=== PATIENT | female | born 1990 | race African-American/Black ===

== ENCOUNTER 2017-02-01 13:00 | Inpatient (IN) | payer OTHER, MEDICAID ==
[~2017-02-01] VITALS: Ht 162.6 cm; Wt 72.6 kg
[2017-02-01] MEDS ORDERED: SODIUM CHLORIDE 0.9% 1,000 ML IV ONE (14:15)
[2017-02-01] MEDS ORDERED: ONDANSETRON HCL 4MG/2ML VIAL IV ONE (14:30)
[2017-02-01 14:41] LABS: BASOPHILS % 0.7 % (0.0-2.0); EOSINOPHILS % 0.2 % (0.0-5.0); HEMATOCRIT. 42.3 % (36.0-48.0); HEMOGLOBIN. 14.9 g/dL (12.0-16.0); LYMPHOCYTES % 21.5 % (20.0-50.0); MEAN CORPUSCULAR HEMOGLOBIN 30.9 pg (28.0-32.0); MEAN CORPUSCULAR VOLUME 87.9 fL (81.0-99.0); MEAN PLATELET VOLUME 8.9 fl (7.4-10.4); MONOCYTES % 6.2 % (2.0-8.0); NEUTROPHILS % 71.4 % (40.0-76.0); PLATELET 278 x1000/uL (130-400); RED BLOOD CELL COUNT 4.81 mill/uL (4.2-5.4); RED CELL DISTRIBUTION WIDTH 12.1 % (11.6-14.6)
[2017-02-01 14:44] LABS: PARTIAL THROMBOPLASTIN TIME 28.2 sec (23.4-31.0); PROTHROMBIN TIME 10.8 sec (9.4-11.6)
[2017-02-01 14:53] LABS: CARBON DIOXIDE 23 mEq/L (21-32); CHLORIDE 105 mEq/L (98-107); TROPONIN I < 0.02 ng/mL (0.00-0.04)
[2017-02-01 14:59] LABS: CREATINE KINASE MB FRACTION < 0.5 ng/mL (0.5-3.6)
[2017-02-01 15:10] LABS: *AMPHETAMINES SCREEN URINE NEGATIVE (NEGATIVE); *BARBITURATES SCREEN URINE NEGATIVE (NEGATIVE); *BENZODIAZEPINES SCREEN URINE NEGATIVE (NEGATIVE); *COCAINE SCREEN URINE NEGATIVE (NEGATIVE); CANNABINOID URINE SCREEN NEGATIVE (NEGATIVE); METHADONE URINE SCREEN NEGATIVE (NEGATIVE); OPIATES URINE SCREEN NEGATIVE (NEGATIVE); PHENCYCLIDINE URINE SCREEN NEGATIVE (NEGATIVE)
[2017-02-01 16:04] LABS: B-HCG QUANTITATIVE 54706 mIU/mL (<3)
[2017-02-01 20:00] VITALS: BP 113/71
[2017-02-01] MEDS: SODIUM CHLORIDE 0.9% 1,000 ML IV SCH (20:23)
[2017-02-01 23:30] VITALS: BP_SYST 107; BP_SYST 116; BP_SYST 118; BP_DIAS 56; BP_DIAS 72; BP_DIAS 73
[2017-02-02] MEDS ORDERED: ACETAMINOPHEN 500MG TABLET PO PRN (00:15)
[2017-02-02 01:27] LABS: CLARITY URINE CLEAR (CLEAR); COLOR URINE YELLOW (YELLOW); GLUCOSE URINE NEGATIVE (NEGATIVE); KETONES URINE NEGATIVE (NEGATIVE); LEUKOCYTE ESTERASE URINE 1+ (NEGATIVE); NITRITE URINE NEGATIVE (NEGATIVE); OCCULT BLOOD URINE NEGATIVE (NEGATIVE); PROTEIN URINE NEGATIVE (NEGATIVE); SPECIFIC GRAVITY URINE 1.022 (1.005-1.030); UROBILINOGEN URINE 0.2 E.U./dL (0.2-1.0)
[2017-02-02 04:04] VITALS: BP 96/66
[2017-02-02] MEDS: ONDANSETRON HCL 4MG/2ML VIAL IV PRN (06:13)
[2017-02-02 06:48] LABS: BASOPHILS % 0.4 % (0.0-2.0); EOSINOPHILS % 0.8 % (0.0-5.0); HEMATOCRIT. 36.6 % (36.0-48.0); HEMOGLOBIN. 12.6 g/dL (12.0-16.0); MEAN CORPUSCULAR HEMOGLOBIN 30.6 pg (28.0-32.0); MEAN CORPUSCULAR VOLUME 88.8 fL (81.0-99.0); MEAN PLATELET VOLUME 8.8 fl (7.4-10.4); MONOCYTES % 8.8 % (2.0-8.0); PLATELET 249 x1000/uL (130-400); RED BLOOD CELL COUNT 4.12 mill/uL (4.2-5.4); RED CELL DISTRIBUTION WIDTH 11.8 % (11.6-14.6)
[2017-02-02 07:58] LABS: CARBON DIOXIDE 22 mEq/L (21-32); CHLORIDE 106 mEq/L (98-107)
[2017-02-02 08:00] VITALS: BP_SYST 102; BP_SYST 103; BP_SYST 105; BP_DIAS 54; BP_DIAS 55
[2017-02-02 08:05] LABS: TROPONIN I < 0.02 ng/mL (0.00-0.04)
[2017-02-02] MEDS: SODIUM CHLORIDE 0.9% 1,000 ML IV SCH ×2 (08:34→23:42)
[2017-02-02 12:00] VITALS: BP_SYST 110; BP_SYST 113; BP_DIAS 60; BP_DIAS 61; BP_DIAS 68
[2017-02-02 16:00] VITALS: BP_SYST 110; BP_SYST 112; BP_DIAS 61; BP_DIAS 62; BP_DIAS 65
[2017-02-02 20:00] VITALS: BP 116/70
[2017-02-02] MEDS ORDERED: AZITHROMYCIN 500 MG TABLET PO NR (20:30)
[2017-02-02] MEDS: CEFTRIAXONE 1 G PREMIX 50 ML IV SCH (23:37)
[2017-02-03] VITALS: BP 101/58
[2017-02-03] MEDS: ONDANSETRON HCL 4MG/2ML VIAL IV PRN ×2 (01:39→17:50)
[2017-02-03 06:07] LABS: CARBON DIOXIDE 19 mEq/L (21-32); CHLORIDE 106 mEq/L (98-107)
[2017-02-03 08:00] VITALS: BP 104/53
[2017-02-03 08:01] LABS: BASOPHILS % 0.4 % (0.0-2.0); EOSINOPHILS % 0.4 % (0.0-5.0); HEMATOCRIT. 37.5 % (36.0-48.0); HEMOGLOBIN. 12.8 g/dL (12.0-16.0); LYMPHOCYTES % 16.4 % (20.0-50.0); MEAN CORPUSCULAR HEMOGLOBIN 30.8 pg (28.0-32.0); MEAN CORPUSCULAR VOLUME 90.1 fL (81.0-99.0); MEAN PLATELET VOLUME 9.1 fl (7.4-10.4); MONOCYTES % 5.7 % (2.0-8.0); NEUTROPHILS % 77.1 % (40.0-76.0); PLATELET 254 x1000/uL (130-400); RED BLOOD CELL COUNT 4.17 mill/uL (4.2-5.4); RED CELL DISTRIBUTION WIDTH 12.2 % (11.6-14.6)
[2017-02-03 08:35] LABS: HEPATITIS B SURFACE ANTIGEN NEGATIVE; RUBELLA IGG 81.7 IU/mL (4.99-10)
[2017-02-03] MEDS: SODIUM CHLORIDE 0.9% 1,000 ML IV SCH ×2 (09:15→21:45)
[2017-02-03 11:57] VITALS: BP 99/54
[2017-02-03 16:00] VITALS: BP 108/69
[2017-02-03] MEDS: CEFTRIAXONE 1 G PREMIX 50 ML IV SCH (20:31)
[2017-02-03 21:00] VITALS: BP 100/62
[2017-02-04 04:40] VITALS: BP 99/54
[2017-02-04 05:20] LABS: BASOPHILS % 0.8 % (0.0-2.0); EOSINOPHILS % 0.8 % (0.0-5.0); HEMATOCRIT. 35.7 % (36.0-48.0); HEMOGLOBIN. 12.3 g/dL (12.0-16.0); LYMPHOCYTES % 26.1 % (20.0-50.0); MEAN CORPUSCULAR HEMOGLOBIN 30.5 pg (28.0-32.0); MEAN CORPUSCULAR VOLUME 88.2 fL (81.0-99.0); MEAN PLATELET VOLUME 8.9 fl (7.4-10.4); MONOCYTES % 6.9 % (2.0-8.0); NEUTROPHILS % 65.4 % (40.0-76.0); PLATELET 237 x1000/uL (130-400); RED BLOOD CELL COUNT 4.04 mill/uL (4.2-5.4)
[2017-02-04 06:21] LABS: CARBON DIOXIDE 22 mEq/L (21-32); CHLORIDE 108 mEq/L (98-107)
[2017-02-04 08:00] VITALS: BP_SYST 101; BP_SYST 102; BP_DIAS 54; BP_DIAS 57; BP_DIAS 58
[2017-02-04] MEDS: ONDANSETRON HCL 4MG/2ML VIAL IV PRN (08:04)
[2017-02-04 11:34] VITALS: BP 123/74
[2017-02-04 12:19] VITALS: BP 123/74
[2017-02-05 04:16] LABS: CHLAMYDIA TRACHOMATIS NAA Negative (Negative); NEISSERIA GONORRHOEAE NAA Negative (Negative)
== END 2017-02-04 12:58 | disposition home or self-care (01) | DRG 566 ==
LOC: ER 13:00 → 5WST 14:55 → ENRESERV 17:54
PROVIDERS: ADMIT Family Medicine Adult Medicine; ATTEND Family Medicine Adult Medicine
DX: O26.891 Other specified pregnancy related conditions, first trimester (principal); R65.10 Systemic inflammatory response syndrome (SIRS) of non-infectious origin without acute organ dysfunction; E83.51 Hypocalcemia; E86.0 Dehydration; E66.9 Obesity, unspecified; O21.1 Hyperemesis gravidarum with metabolic disturbance; O99.281 Endocrine, nutritional and metabolic diseases complicating pregnancy, first trimester; R55 Syncope and collapse; N83.201 Unspecified ovarian cyst, right side; O99.211 Obesity complicating pregnancy, first trimester; O34.81 Maternal care for other abnormalities of pelvic organs, first trimester; Z3A.01 Less than 8 weeks gestation of pregnancy; Z83.3 Family history of diabetes mellitus; Z82.49 Family history of ischemic heart disease and other diseases of the circulatory system
CPT/HCPCS: 36415; 76801; 80048; 80053; 80305; 81001; 82553; 83036; 83735; 83880; 84443; 84484; 84702; 85025; 85610; 85730; 86592; 86703; 86762; 86850; 86870; 86900; 87040; 87086; 87340; 87491; 87591; 87804; 93005; 93306; 93970; 96361; 96374; 97162; 99291; G0482; J0696; J2405; J7030

== ENCOUNTER 2018-05-30 18:11 | Emergency (ER) | payer MEDICAID ==
[~2018-05-30] VITALS: Ht 162.6 cm; Wt 91.0 kg
[2018-05-31] MEDS ORDERED: SODIUM CHLORIDE 0.9% 1,000 ML IV ONE (03:45)
[2018-05-31 04:07] LABS: BASOPHILS % 0.6 % (0.0-2.0); EOSINOPHILS % 0.3 % (0.0-5.0); HEMATOCRIT. 41.3 % (36.0-48.0); HEMOGLOBIN. 14.1 g/dL (12.0-16.0); MEAN CORPUSCULAR HEMOGLOBIN 29.9 pg (28.0-32.0); MEAN CORPUSCULAR VOLUME 87.3 fL (81.0-99.0); MEAN PLATELET VOLUME 8.3 fl (7.4-10.4); MONOCYTES % 6.2 % (2.0-8.0); NEUTROPHILS % 74.9 % (40.0-76.0); PLATELET 331 x1000/uL (130-400); RED BLOOD CELL COUNT 4.73 mill/uL (4.2-5.4); RED CELL DISTRIBUTION WIDTH 12.2 % (11.6-14.6)
[2018-05-31 04:16] LABS: CHLORIDE 104 mEq/L (98-107)
[2018-05-31 04:39] LABS: B-HCG QUANTITATIVE 33134 mIU/mL (<3)
[2018-05-31] MEDS ORDERED: METOCLOPRAMIDE HCL 10MG/2ML VIAL IV SCH (05:47)
[2018-05-31 08:10] LABS: KETONES URINE 4+ (NEGATIVE); LEUKOCYTE ESTERASE URINE 3+ (NEGATIVE); NITRITE URINE NEGATIVE (NEGATIVE); OCCULT BLOOD URINE 3+ (NEGATIVE); PH URINE 5.5 (4.5-8.0); PROTEIN URINE 1+ (NEGATIVE); SPECIFIC GRAVITY URINE 1.036 (1.005-1.030); UROBILINOGEN URINE 0.2 E.U./dL (0.2-1.0)
[2018-05-31 08:16] LABS: CLARITY URINE CLOUDY (CLEAR); COLOR URINE YELLOW (YELLOW)
[2018-05-31 09:38] VITALS: BP 121/68
== END 2018-05-31 09:43 | disposition home or self-care (01) ==
LOC: ER 18:11
DX: O23.41 Unspecified infection of urinary tract in pregnancy, first trimester (principal); O20.9 Hemorrhage in early pregnancy, unspecified; Z3A.01 Less than 8 weeks gestation of pregnancy
CPT/HCPCS: 36415; 76801; 76817; 80053; 81003; 81025; 84702; 85025; 86850; 86900; 86901; 87077; 87086; 87186; 96374; 99284; J2765; J7030; Z7610